=== PATIENT | male | born 1995 | race Caucasian/White ===

== ENCOUNTER 2017-03-19 19:45 | Emergency (ER) | payer OTHER ==
[2017-03-19] MEDS ORDERED: Diphtheria,Pertussis(Acell),Tetanus Vaccine 0.5 ML SDV IM ONE (19:56)
[2017-03-19] MEDS ORDERED: Lidocaine 1% 20 ML MDV ONE (20:04)
--- NOTE | 2017-03-19 20:10 | EDM.PDOC ---
ED HPI GENERAL MEDICAL PROBLEM - General Chief Complaint: Upper Extremity Injury/Pain Stated Complaint: LEFT HAND INJURY Time Seen by Provider: 03/19/17 19:56 Source of Information: Reports: Patient History Limitations: Reports: No Limitations - History of Present Illness INITIAL COMMENTS - FREE TEXT/NARRATIVE: PATIENT IS A 22-YEAR-OLD GENTLEMAN WHO PRESENTS TO THE EMERGENCY DEPARTMENT THIS EVENING WITH A COMPLAINT OF LEFT INDEX FINGER LACERATION. PATIENT STATES THAT HE STUCK HIS FINGER IN THE OPENING OF A CAN THAT HAD A VERY SHARP EDGE. PATIENT DENIES ANY OTHER INJURIES. Onset: Today Onset Date: 03/19/17 Onset Time: 19:25 Location: Reports: Upper Extremity, Left Quality: Reports: Burning Severity: Mild Improves with: Reports: None Worsens with: Reports: None Context: Reports: Trauma Associated Symptoms: Reports: No Other Symptoms Review of Systems - Review of Systems Review Of Systems: ROS reveals no pertinent complaints other than HPI. Constitutional: Reports: No Symptoms Eyes: Reports: No Symptoms Ears: Reports: No Symptoms Nose: Reports: No Symptoms Mouth/Throat: Reports: No Symptoms Respiratory: Reports: No Symptoms Cardiovascular: Reports: No Symptoms GI/Abdominal: Reports: No Symptoms Genitourinary: Reports: No Symptoms Musculoskeletal: Reports: Hand Pain Skin: Reports: Wound (LACERATION TO LEFT INDEX FINGER) Neurological: Reports: No Symptoms Psychiatric: Reports: No Symptoms ED EXAM, GENERAL - Physical Exam Exam: See Below Exam Limited By: No Limitations General Appearance: Alert, WD/WN, No Apparent Distress Throat/Mouth: Normal Inspection, Normal Oropharynx, No Airway Compromise Respiratory/Chest: No Respiratory Distress Extremities: Other (LEFT HAND SECOND DIGIT LACERATION) Neurological: Alert, Oriented, Normal Cognition Psychiatric: Normal Affect, Normal Mood Skin Exam: Warm, Dry, Normal Color, No Rash, Wound/Incision (left 2nd digit ventral aspect/2 cm linear) ED TRAUMA EXTREMITY PROCEDURES - Laceration/Wound Repair Left Distal Ventral Finger Appearance: Superficial Distal NVT: Neuro & Vascular Intact, No Tendon Injury Anesthetic Type: Digital Local Anesthesia - Lidocaine (Xylocaine): 1% Plain Local Anesthetic Volume: 3cc Closed With: Sutures Suture Size: 4-0 Suture Type: Prolene, Interrupted Sterile Dressing Applied: Nurse Tetanus Status Addressed: Yes Course - Orders/Labs/Meds Orders: Active Orders 24 hr Category Date Time Status Vaccines to be Administered [RC] PER UNIT ROUTINE Care 03/19/17 19:56 Ordered Meds: Medications Discontinued Medications Generic Name Dose Route Start Last Admin Trade Name Prema PRN Reason Stop Dose Admin Diphtheria/Tetanus/Acell Pertussis 0.5 ml 03/19/17 19:56 Adacel IM 03/19/17 19:57 .ONCE ONE Lidocaine HCl 5 ml 03/19/17 19:56 Xylocaine-Mpf 1% INJECT 03/19/17 19:57 ONETIME ONE - Re-Assessments/Exams Free Text/Narrative Re-Assessment/Exam: 03/19/17 20:18 Patient afebrile, nontoxic appearing. Vital signs stable. Tolerated procedure well. Patient will follow up with PCP in 10 days for suture removal Departure - Departure Time of Disposition: 20:37 Disposition: Home, Self-Care 01 Condition: Good Clinical Impression: Laceration of finger Qualifiers: Encounter type: initial encounter Finger: index finger Damage to nail status: without damage Foreign body presence: without foreign body Laterality: left Qualified Code(s): S61.211A - Laceration without foreign body of left index finger without damage to nail, initial encounter - Discharge Information Instructions: Laceration Care, Adult, [id number], Stitches, Marcelino, or Adhesive Wound Closure, [id number] Forms: ED Department Discharge Additional Instructions: Follow-up at [facility] in 10 days for suture removal. - My Orders Last 24 Hours: My Active Orders 03/19/17 19:56 Vaccines to be Administered [RC] PER UNIT ROUTINE - Assessment/Plan Last 24 Hours: My Active Orders 03/19/17 19:56 Vaccines to be Administered [RC] PER UNIT ROUTINE Assessment:: Laceration repair to left second digit Plan: Follow-up with PCP for suture removal in 10 days.
[2017-03-19] MEDS ORDERED: Bacitracin/Neomycin/Polymyxin B Oint 0.9 GM U/D Packet ONE (20:30)
== END 2017-03-19 20:55 | disposition home or self-care (01) ==
LOC: KA.ED 19:45
DX: S61.211A Laceration without foreign body of left index finger without damage to nail, initial encounter (principal); Z23 Encounter for immunization; W26.8XXA Contact with other sharp object(s), not elsewhere classified, initial encounter
CPT/HCPCS: 12001; 90471; 90715; 99283; L3999